=== PATIENT | male | born 1955 | race Caucasian/White ===

== ENCOUNTER 2017-06-04 05:27 | Day surgery (SDC) | payer OTHER ==
[2017-06-04] MEDS ORDERED: ceFAZolin 2 GM/SWFI 2 GM/20 ML SYR IVP ONE (05:39)
[2017-06-04] MEDS ORDERED: LR 1,000 ML IV ONE (05:39)
[2017-06-04] MEDS ORDERED: MIDAZOLAM 2 MG/2 ML VIAL IVP ONE (06:57)
--- NOTE | 2017-06-04 06:58 | PDANEPAE ---
ANE History of Present Illness b/l inguinal hernia ANE Past Medical History - Cardiovascular History Hx Hypertension: No Hx Arrhythmias: No Hx Chest Pain: No Hx Coronary Artery / Peripheral Vascular Disease: No Hx CHF / Valvular Disease: No Hx Palpitations: No - Pulmonary History Hx COPD: No Hx Asthma/Reactive Airway Disease: No Hx Recent Upper Respiratory Infection: No Hx Oxygen in Use at Home: No Hx Sleep Apnea: No Sleep Apnea Screening Result - Last Documented: Negative - Neurologic History Hx Cerebrovascular Accident: No Hx Seizures: No Hx Dementia: No - Endocrine History Hx Diabetes: No - Renal History Hx Renal Disorders: No - Liver History Hx Hepatic Disorders: No - Neurological & Psychiatric Hx Hx Neurological and Psychiatric Disorders: No - Cancer History Hx Cancer: No - Congenital Disorder History Hx Congenital Disorders: No - GI History Hx Gastrointestinal Disorders: No - Other Health History Other Health History: Gout - Surgical History Prior Surgeries: bilateral hip resurfacing. tonsillectomy ANE Review of Systems Review of Systems: - Exercise capacity METS (RN): 4 METS ANE Patient History - Allergies Allergies/Adverse Reactions: No Known Allergies Allergy (Unverified 01/25/16 10:18) - Home Medications Home Medications: Allopurinol 400 01/25/16 [Last Taken 06/03/17] - NPO status NPO Since - Liquids (Date): 06/03/17 NPO Since - Liquids (Time): 22:00 NPO Since - Solids (Date): 06/03/17 NPO Since - Solids (Time): 19:00 - Smoking Hx Smoking Status: Current some day smoker - Family Anes Hx Family Hx Anesthesia Complications: none ANE Labs/Vital Signs - Vital Signs Blood Pressure: 115/75 Heart Rate: 55 Respiratory Rate: 16 O2 Sat (%): 97 Height: 177.8 cm Weight: 81.647 kg ANE Physical Exam - Airway Neck exam: FROM Mallampati Score: Class 1 Mouth exam: normal dental/mouth exam - Pulmonary Pulmonary: no respiratory distress - Cardiovascular Cardiovascular: regular rate and rhythym - ASA Status ASA Status: II ANE Anesthesia Plan Anesthesia Plan: general endotracheal anesthesia
[2017-06-04] MEDS ORDERED: PROPOFOL 200 MG/20 ML VIAL ONE (07:01)
[2017-06-04] MEDS ORDERED: fentaNYL 100 MCG/2 ML INJ ONE ×3 (07:01→09:03)
[2017-06-04] MEDS ORDERED: BUPIVACAINE 0.5% 10 ML SDV ONE (07:03)
--- NOTE | 2017-06-04 07:13 | PDHPUP ---
History & Physical Update H&P update statement: This history and physical update is based on an assessment of the patient which was completed after admission or registration (within 24 hours), but prior to the surgery/procedure.
[2017-06-04] MEDS ORDERED: ROCURONIUM 50 MG/5 ML VIAL ONE ×2 (07:24→08:16)
[2017-06-04] MEDS ORDERED: DEXAMETHASONE 4 MG/ML VIAL ONE (07:24)
[2017-06-04] MEDS ORDERED: ONDANSETRON 4 MG/2 ML VIAL ONE (07:24)
[2017-06-04] MEDS ORDERED: HYDROmorphONE/DILAUDID 2 MG/ML INJ ONE (08:16)
[2017-06-04] MEDS ORDERED: PROMETHAZINE HCL 25 MG/ML INJ IVP PRN (08:23)
[2017-06-04] MEDS ORDERED: fentaNYL 100 MCG/2 ML INJ IVP PRN (08:23)
[2017-06-04] MEDS ORDERED: NALOXONE HCL 0.4 MG/ML INJ IVP PRN (08:23)
[2017-06-04] MEDS ORDERED: HYDROmorphONE/DILAUDID 1 MG/ML INJ IVP PRN (08:23)
[2017-06-04] MEDS ORDERED: ONDANSETRON 4 MG/2 ML VIAL IVP PRN (08:23)
--- NOTE | 2017-06-04 08:40 | POSTOPPROG ---
Post Op Note Date of Operation: 06/04/17 Surgeon: Alexy Cornell Emotionally Impaired Teacher: Racquel Anesthesiologist: Davin Anesthesia: GET(General Endotracheal) Pre-op Diagnosis: Bilateral inguinal hernias Post-op Diagnosis: same Indication: pain Procedure: Bilateral inguinal hernia repairs Findings: Bilateral direct inguinal hernias Inf/Abcess present in the surg proc area at time of surgery?: No EBL: Minimal
--- NOTE | 2017-06-04 08:41 | POSTANESTH ---
Post Anesthetic Evaluation Cardiovascular Status: Normal, Stable Respiratory Status: Normal, Stable Level of Consciousness/Mental Status: Can Participate in Eval Pain Control: Adequate, Prn Tx Ordered Nausea/Vomiting Control: Adequate, Prn Tx Ordered Complications Possibly Related to Anesthesia: None Noted
[2017-06-04] MEDS ORDERED: MEPERIDINE 25 MG/ML SYR IVP ONE (08:42)
[2017-06-04 09:16] VITALS: TEMP 98.2
[2017-06-04] MEDS ORDERED: OXYCODONE/APAP 5/325 TAB ONE (09:54)
[2017-06-04] MEDS ORDERED: POLYETHYLENE GLYCOL 3350 17 GM PKT PO ONE (09:59)
[2017-06-04] MEDS ORDERED: OXYCODONE/APAP 5/325 TAB PO PRN (09:59)
[2017-06-04 10:10] VITALS: PULSE 65
[2017-06-04 11:42] VITALS: BP 116/67; RESP 12; O2SAT 91
--- NOTE | 2017-06-06 12:48 | GOP ---
[f rep st] OPERATIVE REPORT DATE OF OPERATION: 06/04/2017 SURGEON: Alexy Cornell MD PLATE DRILLER: Samra Clement NP. ANESTHESIA: Dr. Jin. PREOPERATIVE DIAGNOSIS: Bilateral inguinal hernias. POSTOPERATIVE DIAGNOSIS: Bilateral inguinal hernias. PROCEDURE PERFORMED: Laparoscopic bilateral inguinal hernia repairs. FINDINGS: The patient was found to have bilateral direct defects, left greater than right. DESCRIPTION OF PROCEDURE: Patient taken to the operating room, where he received satisfactory genera l endotracheal anesthesia by Dr. Jin. Placed in supine position, and prepped and draped in [facility] sterile fashion. An infraumbilical incision was made. Dissection was carried down to the rectus sheath, which was incised. A subfascial tunnel was developed in the preperitoneal space that was di ssected free with a balloon dissector, which was replaced with CO2 insufflation trocar. [address] in the midline under direct vision. Александр ligament was exposed bilaterally. The cor ds were mobilized bilaterally. Peritoneum dissected off the cord structures. There were no signific ant indirect sacs. Both sides had a direct defect, left was much larger than the right. The content s were reduced. The fascial edges were freed up. Bilateral Covidien polyester mesh patches were ashley glo over the inguinal floor. It was anchored in place in a similar manner, securing them to Александр l igament, to the lacunar ligament, to the anterior abdominal wall, and the lateral abdominal wall outs lis the internal ring. Hemostasis was assured. Trocars removed under direct vision. Trocar sites w ere closed with 0 Vicryl for the fascia, 4-0 Monocryl subcuticular stitch for the skin. All layers i nfiltrated with 0.5% Marcaine. Blood loss negligible. No complications. Taken to recovery room in g ood condition. /[id number]/MODL
== END 2017-06-04 11:50 | disposition home or self-care (01) ==
LOC: FSGY 05:27
PROVIDERS: ATTEND Surgery
PROC: 0YUA4JZ Supplement Bilateral Inguinal Region with Synthetic Substitute, Percutaneous Endoscopic Approach (ICD-10-PCS; principal; 2017-06-04 07:15)
DX: K40.20 Bilateral inguinal hernia, without obstruction or gangrene, not specified as recurrent (principal); M10.9 Gout, unspecified; E78.5 Hyperlipidemia, unspecified; F17.290 Nicotine dependence, other tobacco product, uncomplicated
CPT/HCPCS: C1727; C1781; J0690; J1100; J1170; J2250; J2405; J2704; J3010